=== PATIENT | male | born 1955 | race Caucasian/White ===

== ENCOUNTER → 2020-07-28 01:14 | Outpatient (CLI) | payer MEDICARE, SELFPAY ==
[2020-07-28 19:42] LABS: SARS-CoV-2 RNA PCR Negative
== END ==
PROVIDERS: PCP Nurse Practitioner; Visit Provider Internal Medicine Gastroenterology
DX: Z01.812 Encounter for preprocedural laboratory examination (principal); Z20.822 Contact with and (suspected) exposure to COVID-19
CPT/HCPCS: C9803; U0003; U0005

== ENCOUNTER 2020-08-01 00:40 | Day surgery (SDC) | payer MEDICARE, SELFPAY ==
[2020-07-17 15:01] VITALS: BMI 33.5
--- NOTE | 2020-07-31 15:19 | WPDANESEPPF ---
Anes - Initial Pre Proc Eval Procedure: Operation Date: 08/01/20 08:00 Proposed Procedures p Colonoscopy - Joce Soto MD Date/Time: 07/31/20 15:19 Surgeon: Joec Soto MD Pre Op Diagnosis: Positive Cologuard Patient Data Age: 65 Gender: M Height: 1.8 m Weight: 109 kg Allergies Allergy/AdvReac Type Severity Reaction Status Date / Time No Known Allergies Allergy Verified 07/17/20 15:02 Home Medications Medication Instructions Recorded Confirmed Type sodium,potassium,mag sulfates 17.5 See Rx Instructions PO .COMPLEX 07/09/20 Rx gram-3.13 gram-1.6 gram oral soln #354 ml cholecalciferol (vitamin D3) 25 mcg PO DAILY 07/17/20 07/17/20 History [Vitamin D3] diphenhydramine HCl [Benadryl 50 mg PO HS 07/17/20 07/17/20 History Allergy] lisinopril-hydrochlorothiazide 2 tablet PO HS 07/17/20 07/17/20 History metformin 1,000 mg PO BID 07/17/20 07/17/20 History multivit with min-folic acid 1 tablet PO DAILY 07/17/20 07/17/20 History [Adult One Daily Multivitamin] PMFSH Past Medical History Medical History (Updated 07/31/20 @ 15:20 by Oliver Wilson MD) Essential (primary) hypertension Fatty (change of) liver, not elsewhere classified Obesity Type 2 diabetes mellitus without complications Family History Family History (Updated 01/10/16 @ 10:18 by DOCTOR UNKNOWN) Father Hypertension Family history of cardiovascular disease Family history of dementia Mother Hypertension Other Family history of obesity Social History Social History Smoking status: Never smoker Alcohol intake: current Substance use: never Substance use type: does not use Spiritual care concerns: No Anes - Eval Final PreProcedure Day of Procedure 07/31/20 15:19 Patient weight: obese Heart: regular rate and rhythm Lungs: clear to auscultation and normal air movement Airway: Mallampati scale class II Neurological: alert and oriented Last oral intake: >/= 8 hours ASA classification: III Emergent: no Anesthetic plan: proceed Anesthesia type and monitoring: general GIVS Informed Consent: The patient's anesthetic plan and its attendant risks and benefits were discussed with the patient/family/POA. Questions were solicited and answers provided to the satisfaction of the patient/family/POA.
[2020-08-01 06:30] VITALS: BP 135/72; PULSE 60; RESP 18; O2SAT 97
[2020-08-01 06:42] VITALS: BMI 31.3
--- NOTE | 2020-08-01 06:46 | WPDANESEPPF ---
Anes - Initial Pre Proc Eval Procedure: Operation Date: 08/01/20 08:00 Proposed Procedures p Colonoscopy - Joce Soto MD Date/Time: 08/01/20 06:46 Surgeon: Joce Soto MD Pre Op Diagnosis: Positive Cologuard Patient Data Age: 65 Gender: M Height: 5 ft 11 in Weight: 101.8 kg Allergies Allergy/AdvReac Type Severity Reaction Status Date / Time No Known Allergies Allergy Verified 08/01/20 06:41 Home Medications Medication Instructions Recorded Confirmed Type sodium,potassium,mag sulfates 17.5 See Rx Instructions PO .COMPLEX 07/09/20 Rx gram-3.13 gram-1.6 gram oral soln #354 ml cholecalciferol (vitamin D3) 25 mcg PO DAILY 07/17/20 07/17/20 History [Vitamin D3] diphenhydramine HCl [Benadryl 50 mg PO HS 07/17/20 07/17/20 History Allergy] lisinopril-hydrochlorothiazide 2 tablet PO HS 07/17/20 07/17/20 History metformin 1,000 mg PO BID 07/17/20 07/17/20 History multivit with min-folic acid 1 tablet PO DAILY 07/17/20 07/17/20 History [Adult One Daily Multivitamin] Patient hx anesthesia problems: none Family hx anesthesia problems: none PMFSH Past Medical History Medical History Essential (primary) hypertension Fatty (change of) liver, not elsewhere classified Obesity Type 2 diabetes mellitus without complications Family History Family History Father Hypertension Family history of cardiovascular disease Family history of dementia Mother Hypertension Other Family history of obesity Social History Social History Smoking status: Never smoker Alcohol intake: current Substance use: never Substance use type: does not use Living arrangements: with family Spiritual care concerns: No Anes - Eval Final PreProcedure Day of Procedure 08/01/20 06:46 Patient weight: obese Heart: regular rate and rhythm Lungs: clear to auscultation Airway: Mallampati scale class II Neurological: alert and oriented Last oral intake: >/= 8 hours ASA classification: III Emergent: no Anesthetic plan: proceed Anesthesia type and monitoring: general Informed Consent: The patient's anesthetic plan and its attendant risks and benefits were discussed with the patient/family/POA. Questions were solicited and answers provided to the satisfaction of the patient/family/POA.
[2020-08-01 06:58] LABS: Glucose Point of Care 163 (65-105)
[2020-08-01] MEDS: LACTATED RINGERS 1,000 ML 150 ML IV CONT (06:59)
--- NOTE | 2020-08-01 07:57 | PM.HPGS ---
History of Present Illness History of Present Illness Consent: Risks, benefits, and alternatives have been discussed and questions answered. Patient agrees to proceed with procedure. Chief complaint: Positive Cologuard Narrative: Dusty Pittman is a 65 year old male with positive cologuard, never had colonoscopy Review of Systems Constitutional: Constitutional: Denies headache(s) and Denies weakness Eyes: Eyes: Denies blurry vision ENT: Reports Normal hearing present, Denies headache(s) and Denies neck pain Cardiovascular: Cardiovascular: Denies chest pain and Denies dyspnea Respiratory: Respiratory: Denies dyspnea Gastrointestinal: Gastrointestinal: Reports no additional gastrointestinal complaints Genitourinary: Genitourinary: Denies dysuria Musculoskeletal: Musculoskeletal: Denies neck pain Integumentary/Breasts: Skin/Breast: Denies dry skin Neurologic: Reports Normal hearing present, Denies headache(s) and Denies weakness Psychiatric: Psychiatric: Denies anxiety Endocrine: Endocrine: Denies change in body appearance Hematologic/Lymphatic: Hematologic/Lymphatic: Denies easy bleeding Allergic/Immunologic: Allergic/Immunologic: Denies urticaria PMFSH Past Medical History Medical History Essential (primary) hypertension Fatty (change of) liver, not elsewhere classified Obesity Type 2 diabetes mellitus without complications Family History Family History Father Hypertension Family history of cardiovascular disease Family history of dementia Mother Hypertension Other Family history of obesity Social History Social History Smoking status: Never smoker Alcohol intake: current Substance use: never Substance use type: does not use Living arrangements: with family Spiritual care concerns: No Meds Home Medications and Allergies Home Medications Medication Instructions Recorded Confirmed Type sodium,potassium,mag sulfates 17.5 See Rx Instructions PO .COMPLEX 07/09/20 Rx gram-3.13 gram-1.6 gram oral soln #354 ml cholecalciferol (vitamin D3) 25 mcg PO DAILY 07/17/20 07/17/20 History [Vitamin D3] diphenhydramine HCl [Benadryl 50 mg PO HS 07/17/20 07/17/20 History Allergy] lisinopril-hydrochlorothiazide 2 tablet PO HS 07/17/20 07/17/20 History metformin 1,000 mg PO BID 07/17/20 07/17/20 History multivit with min-folic acid 1 tablet PO DAILY 07/17/20 07/17/20 History [Adult One Daily Multivitamin] Allergies Allergy/AdvReac Type Severity Reaction Status Date / Time No Known Allergies Allergy Verified 08/01/20 06:41 Exam Const: General: comfortable and no acute distress HENMT: General nose exam: Normal nares present Eyes: General: appearance normal, both eyes and all related structures Neck: Neck: no JVD Resp: Auscultation: clear to auscultation bilaterally Cardio: Rate: regular rate Rhythm: regular rhythm GI: Inspection: non-distended GI Palp: Yes Soft to palpation Skin: General skin exam: normal color Neuro: General: gait normal Speech: normal speech Extrem: General: normal to inspection Psych: Mental Status: mental status grossly normal Assessment and Plan Assessment and plan (1) Positive colorectal cancer screening using Cologuard test: Code(s): R19.5 - Other fecal abnormalities Status: Acute Assessment and Plan: proceed with colonoscopy
[2020-08-01 08:33] VITALS: BP 102/66; PULSE 56; RESP 16
[2020-08-01 08:43] VITALS: BP 114/75; PULSE 55; RESP 26
[2020-08-01 08:53] VITALS: BP 115/73; PULSE 52; RESP 19
== END 2020-08-01 09:02 | disposition home or self-care (01) ==
PROVIDERS: PCP Nurse Practitioner; Visit Provider Internal Medicine Gastroenterology
PROC: 0DJD8ZZ Inspection of Lower Intestinal Tract, Via Natural or Artificial Opening Endoscopic (ICD-10-PCS; CPT 45378; principal; 2020-08-01 08:00)
DX: R19.5 Other fecal abnormalities (principal); D12.2 Benign neoplasm of ascending colon; K57.30 Diverticulosis of large intestine without perforation or abscess without bleeding; K64.8 Other hemorrhoids; I10 Essential (primary) hypertension; K76.0 Fatty (change of) liver, not elsewhere classified; E11.9 Type 2 diabetes mellitus without complications; E66.9 Obesity, unspecified; Z68.31 Body mass index [BMI] 31.0-31.9, adult; Z79.84 Long term (current) use of oral hypoglycemic drugs
CPT/HCPCS: 45380; 82948; 88305; J2001; J2704; J7120

== ENCOUNTER → 2021-06-26 15:16 | Outpatient (CLI) | payer MEDICARE, SELFPAY ==
--- NOTE | ~2021-06-26 | XR_ITS ---
XR chest 2V 06/26/2021 15:43 Indication: Cough Procedure: 2 view chest Comparison: 06/21/2007 Findings: Patchy bibasilar airspace disease, compatible with pneumonia. No pleural effusion. No pneum othorax. No acute osseous abnormality. Impression: 1: Patchy bibasilar airspace disease, compatible with pneumonia. Reviewed, dictated and finalized at location B. [facility] Impression: 1: Patchy bibasilar airspace disease, compatible with pneumonia.
== END ==
PROVIDERS: PCP Nurse Practitioner; Visit Provider Nurse Practitioner
DX: R05.9 Cough, unspecified (principal)
CPT/HCPCS: 71046

== ENCOUNTER 2022-07-02 09:48 | Outpatient (CLI) | payer MEDICARE, SELFPAY ==
[2022-07-02 16:54] LABS: Kit Draw Collected
== END 2022-07-02 09:49 | disposition home or self-care (01) ==
LOC: ANHGOSHLAB 09:53
PROVIDERS: PCP Family Medicine; Visit Provider Nurse Practitioner
DX: I10 Essential (primary) hypertension (principal); E78.5 Hyperlipidemia, unspecified; E11.9 Type 2 diabetes mellitus without complications
CPT/HCPCS: 36415

== ENCOUNTER 2022-11-24 09:52 | Outpatient (CLI) | payer MEDICARE, SELFPAY ==
[2022-11-24 16:51] LABS: Creatinine Urine 152.9 mg/dL
[2022-11-24 16:55] LABS: MALB Creatinine Ratio 19.2 mg/g (0-30); Microalbumin Urine Random 29.3 mg/L (0-16.7)
[2022-11-24 17:11] LABS: Vitamin D 25 Hydroxy 51.4 ng/mL
[2022-11-24 18:04] LABS: Hemoglobin A1C 6.5 % (<5.7)
[2022-11-24 18:23] LABS: Alanine Aminotransferase 59 U/L (6-50); Albumin Level 4.5 g/dL (3.5-5.1); Alkaline Phosphatase 72 U/L (38-126); Anion Gap 5 mmol/L (8-16); Aspartate Amino Transferase 79 U/L (17-59); Bilirubin,Total 0.8 mg/dL (0.2-1.3); Blood Urea Nitrogen 27 mg/dL (9-20); Carbon Dioxide 30 mmol/L (22-30); Chloride 104 mmol/L (98-107); Cholesterol 181 mg/dL (0-200); Estimated Glomerular Filt Rate > 60; Glucose 121 mg/dL (65-110); HDL Direct 35 mg/dL; Magnesium 2.2 mg/dL (1.6-2.3); Potassium 4.1 mmol/L (3.4-5.0); Sodium 139 mmol/L (137-145); Triglycerides 271 mg/dL (<150)
[2022-11-24 18:36] LABS: LDL Cholesterol Direct 98 mg/dL
[2022-11-24 18:52] LABS: Prostate Specific Antigen 0.8 ng/mL (< OR = 4.0); Thyroid Stimulating Hormone 0.306 uIU/mL (0.465-4.680)
== END 2022-11-24 09:53 | disposition home or self-care (01) ==
LOC: ANHGOSHLAB 09:54
PROVIDERS: PCP Family Medicine; Visit Provider Nurse Practitioner Family
DX: E11.9 Type 2 diabetes mellitus without complications (principal); Z13.1 Encounter for screening for diabetes mellitus; I10 Essential (primary) hypertension; Z13.220 Encounter for screening for lipoid disorders; Z13.29 Encounter for screening for other suspected endocrine disorder; R25.2 Cramp and spasm; N40.0 Benign prostatic hyperplasia without lower urinary tract symptoms; Z13.21 Encounter for screening for nutritional disorder; E53.8 Deficiency of other specified B group vitamins; Z12.5 Encounter for screening for malignant neoplasm of prostate
CPT/HCPCS: 36415; 80053; 80061; 82043; 82306; 82607; 83036; 83735; 84153; 84443; G0103

== ENCOUNTER → 2022-11-24 10:22 | Outpatient (CLI) | payer MEDICARE, SELFPAY ==
--- NOTE | ~2022-11-24 | XR_ITS ---
EXAMINATION: XR ribs LT 2V INDICATION: Left chest pain TECHNIQUE: 3 views of the left ribs were obtained. COMPARISON: 06/26/2021 FINDINGS: No displaced rib fracture is identified. The visualized portions of the lungs are clear. Th e heart size is normal. Calcified pulmonary nodules and calcified subcarinal lymph nodes are consiste nt with old granulomatous disease. IMPRESSION: 1. No displaced rib fracture identified. Reviewed, dictated and finalized at location []
== END ==
PROVIDERS: PCP Nurse Practitioner Family; Visit Provider Nurse Practitioner Family
DX: S29.9XXA Unspecified injury of thorax, initial encounter (principal); X58.XXXA Exposure to other specified factors, initial encounter
CPT/HCPCS: 71100

== ENCOUNTER 2023-05-11 09:17 | Outpatient (CLI) | payer MEDICARE, SELFPAY ==
[2023-05-11 18:44] LABS: Basophils Percent Auto 0.4 % (0.2-1.2); Eosinophils Absolute Auto 0.2 K/mm3 (0-0.3); Eosinophils Percent Auto 2.3 % (0-4.4); Hematocrit 49.8 % (42.0-52.0); Hemoglobin 16.4 g/dL (14.0-18.0); Immature Granulocyte Absolute 0.02 K/mm3 (0.00-0.031); Immature Granulocyte Percent A 0.3 % (0-0.5); Lymphocytes Absolute Auto 2.62 K/mm3 (0.9-3.2); Lymphocytes Percent Auto 33.2 % (18.3-44.2); Mean Corpuscular HGB Conc 32.9 g/dl (32-36); Mean Corpuscular Hemoglobin 31.1 pg (26-34); Mean Corpuscular Volume 94.3 fl (80-100); Mean Platelet Volume 10.4 fl (7.4-10.4); Monocytes Absolute Auto 0.5 K/mm3 (0.1-0.6); Monocytes Percent Auto 6.9 % (2.6-8.5); Neutrophils Absolute Auto 4.5 K/mm3 (1.3-6.7); Neutrophils Percent Auto 56.9 % (45.5-73.1); Platelet Count Result 209 k/mm3 (150-375); Red Blood Count 5.28 M/mm3 (4.6-6.20); White Blood Count 7.9 K/mm3 (4.5-10.0)
[2023-05-11 19:19] LABS: Alanine Aminotransferase 46 U/L (6-50); Albumin Level 4.2 g/dL (3.5-5.1); Alkaline Phosphatase 66 U/L (38-126); Anion Gap 8 mmol/L (8-16); Aspartate Amino Transferase 45 U/L (17-59); Bilirubin,Total 0.7 mg/dL (0.2-1.3); Blood Urea Nitrogen 29 mg/dL (9-20); Calcium 9.8 mg/dL (8.4-10.2); Carbon Dioxide 27 mmol/L (22-30); Chloride 106 mmol/L (98-107); Cholesterol 177 mg/dL (0-200); Estimated Glomerular Filt Rate > 60; Glucose 132 mg/dL (65-110); HDL Direct 33 mg/dL; Sodium 141 mmol/L (137-145); Triglycerides 219 mg/dL (<150)
[2023-05-11 19:30] LABS: LDL Cholesterol Direct 96 mg/dL
[2023-05-11 19:50] LABS: Thyroid Stimulating Hormone 0.419 uIU/mL (0.465-4.680)
[2023-05-11 20:07] LABS: Free T4 Free Thyroxine 1.26 ng/mL (0.78-2.19)
== END 2023-05-11 09:18 | disposition home or self-care (01) ==
LOC: ANHGOSHLAB 09:19
PROVIDERS: PCP Nurse Practitioner Family; Visit Provider Nurse Practitioner Family
DX: E11.9 Type 2 diabetes mellitus without complications (principal); Z00.00 Encounter for general adult medical examination without abnormal findings; I10 Essential (primary) hypertension; E53.8 Deficiency of other specified B group vitamins; Z13.220 Encounter for screening for lipoid disorders; Z13.29 Encounter for screening for other suspected endocrine disorder; R79.89 Other specified abnormal findings of blood chemistry
CPT/HCPCS: 36415; 80053; 80061; 82607; 84439; 84443; 85025

== ENCOUNTER 2023-05-18 09:21 | Outpatient (CLI) | payer MEDICARE, SELFPAY | END 2023-05-18 09:22 | disposition home or self-care (01) | LOC: ANHGOSHLAB 09:22 | PROVIDERS: PCP Nurse Practitioner Family; Visit Provider Nurse Practitioner Family | DX: E11.9 Type 2 diabetes mellitus without complications (principal) | CPT/HCPCS: 36415; 83036 ==

== ENCOUNTER 2023-11-23 08:45 | Outpatient (CLI) | payer MEDICARE, SELFPAY ==
[2023-11-23 12:27] LABS: Basophils Percent Auto 0.3 % (0.2-1.2); Eosinophils Absolute Auto 0.2 K/mm3 (0-0.3); Eosinophils Percent Auto 2.6 % (0-4.4); Hematocrit 48.7 % (42.0-52.0); Hemoglobin 16.8 g/dL (14.0-18.0); Immature Granulocyte Absolute 0.02 K/mm3 (0.00-0.031); Immature Granulocyte Percent A 0.2 % (0-0.5); Lymphocytes Absolute Auto 3.11 K/mm3 (0.9-3.2); Lymphocytes Percent Auto 35.6 % (18.3-44.2); Mean Corpuscular HGB Conc 34.5 g/dl (32-36); Mean Corpuscular Hemoglobin 32.4 pg (26-34); Mean Corpuscular Volume 93.8 fl (80-100); Mean Platelet Volume 10.5 fl (7.4-10.4); Monocytes Absolute Auto 0.6 K/mm3 (0.1-0.6); Monocytes Percent Auto 6.8 % (2.6-8.5); Neutrophils Absolute Auto 4.8 K/mm3 (1.3-6.7); Neutrophils Percent Auto 54.5 % (45.5-73.1); Platelet Count Result 212 k/mm3 (150-375); Red Blood Count 5.19 M/mm3 (4.6-6.20); Red Cell Distribution Width 13.2 % (11.5-14.5); White Blood Count 8.7 K/mm3 (4.5-10.0)
[2023-11-23 13:25] LABS: Alanine Aminotransferase 36 U/L (6-50); Albumin Level 4.4 g/dL (3.5-5.1); Alkaline Phosphatase 59 U/L (38-126); Anion Gap 10 mmol/L (4-12); Aspartate Amino Transferase 43 U/L (17-59); Bilirubin,Total 0.9 mg/dL (0.2-1.3); Blood Urea Nitrogen 23 mg/dL (9-20); Carbon Dioxide 28 mmol/L (22-30); Chloride 104 mmol/L (98-107); Cholesterol 177 mg/dL (0-200); Estimated Glomerular Filt Rate > 60; Glucose 130 mg/dL (65-110); HDL Direct 37 mg/dL; Potassium 3.7 mmol/L (3.4-5.0); Sodium 142 mmol/L (137-145); Triglycerides 337 mg/dL (<150)
[2023-11-23 13:36] LABS: LDL Cholesterol Direct 93 mg/dL
[2023-11-23 13:52] LABS: Prostate Specific Antigen 0.8 ng/mL (< OR = 4.0); Thyroid Stimulating Hormone 0.571 uIU/mL (0.465-4.680)
[2023-11-23 19:02] LABS: Hemoglobin A1C 6.2 % (<5.7)
== END 2023-11-23 08:46 | disposition home or self-care (01) ==
LOC: ANHGOSHLAB 08:47
PROVIDERS: PCP Nurse Practitioner Family; Visit Provider Nurse Practitioner Family
DX: E78.5 Hyperlipidemia, unspecified (principal); E11.9 Type 2 diabetes mellitus without complications; I10 Essential (primary) hypertension; N40.0 Benign prostatic hyperplasia without lower urinary tract symptoms; Z12.5 Encounter for screening for malignant neoplasm of prostate; K76.0 Fatty (change of) liver, not elsewhere classified
CPT/HCPCS: 36415; 80053; 80061; 83036; 84153; 84443; 85025; G0103

== ENCOUNTER 2023-12-01 14:40 | Emergency (ER) | payer MEDICARE, SELFPAY ==
[2023-12-01 14:56] VITALS: BP 107/64; PULSE 57; RESP 16; TEMP 36; O2SAT 97
--- NOTE | 2023-12-01 15:03 | ED.URI ---
HPI - URI/Sore Throat General Chief Complaint: Upper Respiratory Infection Stated Complaint: Congestion/Exhaustion Time Seen by Provider: 12/01/23 15:03 Source: patient, RN notes reviewed and old records reviewed Mode of arrival: ambulatory Limitations: no limitations History of Present Illness HPI Narrative: 68-year-old male to [facility] with complaint of fatigue, sinus pressure, increased sweating, congestion for 3 days. patient denies allergies, shortness of breath, chest pain, ear pain, sore throat, cough. Patient able to tolerate fluids by mouth. Respirations even and nonlabored. Patient able to speak in full sentences without difficulty. Patient in no acute distress. Related Data Home Medications Medication Instructions Recorded Confirmed cholecalciferol (vitamin D3) 25 25 mcg PO DAILY 07/17/20 11/26/23 mcg (1,000 unit) capsule (Vitamin D3) multivitamin with minerals-folic 1 tablet PO DAILY 07/17/20 11/26/23 acid 0.4 mg tablet (Adult One Daily Multivitamin) krill oil 500 mg capsule 500 mg PO DAILY 10/24/20 11/26/23 diphenhydramine HCl 25 mg tablet 50 mg PO HS PRN sleep 05/01/21 11/26/23 (Benadryl Allergy) Allergies Allergy/AdvReac Type Severity Reaction Status Date / Time No Known Allergies Allergy Verified 11/26/23 08:55 Review of Systems Review of Systems: All systems reviewed & are unremarkable except as noted in HPI and below Constitutional: Constitutional: Reports as per HPI, Reports excessive sweating, Reports fatigue, Denies fever(s) and Reports lethargy Eyes: Eyes: Reports no additional eye complaints ENT: Reports as per HPI, Reports nasal congestion and Reports sinus pressure Cardiovascular: Cardiovascular: Reports no additional cardiovascular complaints, Denies chest pain and Denies dyspnea Respiratory: Respiratory: Reports no additional respiratory complaints, Denies cough and Denies dyspnea Musculoskeletal: Musculoskeletal: Reports no additional musculoskeletal complaints Neurologic: Reports system reviewed and no additional complaints, except as documented Psychiatric: Psychiatric: Reports no additional psychiatric complaints PMFSH Past Medical History Medical History Essential (primary) hypertension Fatty (change of) liver, not elsewhere classified Muscle cramping Obesity Positive colorectal cancer screening using Cologuard test Rib injury Type 2 diabetes mellitus without complications Family History Family History Father Hypertension Family history of cardiovascular disease Family history of dementia Mother Hypertension Other Family history of obesity Social History Social History Social History: Caffeine- tea Smoking status: Never smoker Alcohol intake: never Substance use: never Substance use type: does not use Lack of Transportation: No Lack of Food: Never True Current Housing: I Have Housing Concerned About Future Housing: No Difficulty Paying Gas/Electric Bills: No Difficulty Paying for Meds: No Currently Unemployed: No Education: Trade/Vocational Certificate Difficulty w/ Childcare or Family Care: No Living arrangements: with family Spiritual care concerns: No Comments At the time of my signature, I reviewed and agree with the nursing past medical, surgical, social, and family history. There is no relevant family history pertinent to the patient complaint. Exam Const: General: cooperative, no acute distress, alert, ill appearing acutely, tired appearing, uncomfortable and well nourished Nutritional Appearance: well nourished Orientation/consciousness: patient oriented x3 Limitations: no limitations HENMT: Head: normal to inspection Ears: external ears normal Face/Nose/Sinus: Normal external nose present, Normal nares pres
[2023-12-01 15:09] LABS: EDINFLUASCREEN Negative; EDINFLUBSCREEN Negative
== END 2023-12-01 15:35 | disposition home or self-care (01) ==
PROVIDERS: Emergency Provider Nurse Practitioner Family; PCP Nurse Practitioner Family
DX: U07.1 COVID-19 (principal); I10 Essential (primary) hypertension; E11.9 Type 2 diabetes mellitus without complications; K76.0 Fatty (change of) liver, not elsewhere classified; E66.9 Obesity, unspecified; Z68.31 Body mass index [BMI] 31.0-31.9, adult
CPT/HCPCS: 87426; 87804; 99213; G0463

== ENCOUNTER 2024-02-21 10:14 | Emergency (ER) | payer MEDICARE, SELFPAY ==
[2024-02-21 10:25] VITALS: BP 133/76; PULSE 55; RESP 16; TEMP 36.9; O2SAT 99
--- NOTE | 2024-02-21 10:31 | ED.EAR ---
HPI - Ear Problem General Chief complaint: Ear Stated complaint: R EAR CLOGGED Time Seen by Provider: 02/21/24 10:30 Source: patient and RN notes reviewed Mode of arrival: ambulatory Limitations: no limitations History of Present Illness HPI Narrative: 69-year-old male presents concern for right hearing decrease, feeling of ear being clogged. Reports he used [id number] drops without relief for a couple days. MD Complaint: decreased hearing Related Data Home Medications Medication Instructions Recorded Confirmed cholecalciferol (vitamin D3) 25 25 mcg PO DAILY 07/17/20 02/21/24 mcg (1,000 unit) capsule (Vitamin D3) multivitamin with minerals-folic 1 tablet PO DAILY 07/17/20 02/21/24 acid 0.4 mg tablet (Adult One Daily Multivitamin) krill oil 500 mg capsule 500 mg PO DAILY 10/24/20 02/21/24 diphenhydramine HCl 25 mg tablet 50 mg PO HS PRN sleep 05/01/21 02/21/24 (Benadryl Allergy) Allergies Allergy/AdvReac Type Severity Reaction Status Date / Time No Known Allergies Allergy Verified 02/21/24 10:23 Review of Systems Review of Systems: CONSTITUTIONAL: Denies malaise, chills, sweats, or fever. EYES: Denies visual changes, redness, or discharge. ENT: Denies rhinorrhea, congestion, sinus pain, and sore throat. Reports right ear clogged, decreased hearing CARDIOVASCULAR: Denies chest pain, palpitations, or edema. RESPIRATORY: Denies cough. Denies dyspnea. GASTROINTESTINAL: Denies abdominal pain, nausea, vomiting, diarrhea SKIN: Denies rash or itching. MUSCULOSKELETAL: Denies myalgia. NEUROLOGIC: Denies headache. All systems reviewed & are unremarkable except as noted in HPI and below PMFSH Past Medical History Medical History Essential (primary) hypertension Fatty (change of) liver, not elsewhere classified Muscle cramping Obesity Positive colorectal cancer screening using Cologuard test Rib injury Type 2 diabetes mellitus without complications Family History Family History Father Hypertension Family history of cardiovascular disease Family history of dementia Mother Hypertension Other Family history of obesity Social History Social History Social History: Caffeine- tea Smoking status: Never smoker Alcohol intake: never Substance use: never Substance use type: does not use Lack of Transportation: No Lack of Food: Never True Current Housing: I Have Housing Concerned About Future Housing: No Difficulty Paying Gas/Electric Bills: No Difficulty Paying for Meds: No Currently Unemployed: No Education: Trade/Vocational Certificate Difficulty w/ Childcare or Family Care: No Living arrangements: with family Spiritual care concerns: No Comments At time of signature, agree with nursing past medical, surgical, social and family history. There is no relevant family history pertinent to the presenting complaint Exam Narrative: GENERAL: Well-appearing, well-nourished, and in no acute distress. HEAD: Normocephalic EYES: PERRLA, conjunctivae clear ENT: Nares clear, turbinates edematous, clear discharge. Mucous membranes moist. Left TM pearly villalta with dull light reflex, right TM not visible due to cerumen impaction; no tragal tenderness. Oropharynx not erythematous without lesions. Tonsils not enlarged and without exudate, no drooling, no hoarseness, no trismus, uvula midline. NECK: Supple. No lymphadenopathy CHEST: Clear to auscultation, breath sounds equal. No wheezing, rhonchi, rales, or stridor. No respiratory distress, speaks in full sentences. HEART: Regular rate and rhythm. No murmur heard. SKIN: Warm, dry, no rash. NEURO: Alert and oriented x3. PSYCH: Normal mood and affect Course Course Emergency Course: Patient is aware of diagnosis, understands and agrees
== END 2024-02-21 10:58 | disposition home or self-care (01) ==
PROVIDERS: Emergency Provider Nurse Practitioner; PCP Nurse Practitioner Family
DX: H61.21 Impacted cerumen, right ear (principal); I10 Essential (primary) hypertension; K76.0 Fatty (change of) liver, not elsewhere classified; E66.9 Obesity, unspecified; Z68.1 Body mass index [BMI] 19.9 or less, adult; E11.9 Type 2 diabetes mellitus without complications
CPT/HCPCS: 69210; 99212; G0463

== ENCOUNTER 2024-06-14 09:09 | Outpatient (CLI) | payer MEDICARE, SELFPAY ==
[2024-06-14 13:30] LABS: Basophils Percent Auto 0.5 % (0.2-1.2); Eosinophils Absolute Auto 0.1 K/mm3 (0-0.3); Eosinophils Percent Auto 1.5 % (0-4.4); Hematocrit 50.5 % (42.0-52.0); Hemoglobin 16.6 g/dL (14.0-18.0); Immature Granulocyte Absolute 0.02 K/mm3 (0.00-0.031); Immature Granulocyte Percent A 0.3 % (0-0.5); Lymphocytes Absolute Auto 2.38 K/mm3 (0.9-3.2); Lymphocytes Percent Auto 30.2 % (18.3-44.2); Mean Corpuscular HGB Conc 32.9 g/dl (32-36); Mean Corpuscular Hemoglobin 31.5 pg (26-34); Mean Corpuscular Volume 95.8 fl (80-100); Monocytes Absolute Auto 0.5 K/mm3 (0.1-0.6); Monocytes Percent Auto 6.1 % (2.6-8.5); Neutrophils Absolute Auto 4.8 K/mm3 (1.3-6.7); Neutrophils Percent Auto 61.4 % (45.5-73.1); Platelet Count Result 198 k/mm3 (150-375); Red Blood Count 5.27 M/mm3 (4.6-6.20); White Blood Count 7.9 K/mm3 (4.5-10.0)
[2024-06-14 13:56] LABS: Alanine Aminotransferase 70 U/L (6-50); Albumin Level 4.4 g/dL (3.5-5.1); Alkaline Phosphatase 60 U/L (38-126); Anion Gap 9 mmol/L (4-12); Aspartate Amino Transferase 80 U/L (17-59); Bilirubin,Total 0.9 mg/dL (0.2-1.3); Blood Urea Nitrogen 26 mg/dL (9-20); Calcium 9.4 mg/dL (8.4-10.2); Carbon Dioxide 28 mmol/L (22-30); Chloride 105 mmol/L (98-107); Cholesterol 189 mg/dL (0-200); Estimated Glomerular Filt Rate > 60; Glucose 130 mg/dL (65-110); HDL Direct 34 mg/dL; Potassium 3.6 mmol/L (3.4-5.0); Sodium 142 mmol/L (137-145); Triglycerides 318 mg/dL (<150)
[2024-06-14 14:02] LABS: Vitamin D 25 Hydroxy 47.1 ng/mL
[2024-06-14 14:07] LABS: LDL Cholesterol Direct 96 mg/dL
[2024-06-14 14:30] LABS: Creatinine Urine 107.9 mg/dL
[2024-06-14 14:37] LABS: MALB Creatinine Ratio 151.9 mg/g (0-30); Microalbumin Urine Random 163.9 mg/L (0-16.7)
[2024-06-14 19:32] LABS: Hemoglobin A1C 6.9 % (<5.7)
== END 2024-06-14 09:10 | disposition home or self-care (01) ==
LOC: ANHGOSHLAB 09:10
PROVIDERS: PCP Nurse Practitioner Family; Visit Provider Nurse Practitioner Family
DX: E55.9 Vitamin D deficiency, unspecified (principal); I10 Essential (primary) hypertension; E78.2 Mixed hyperlipidemia; E11.9 Type 2 diabetes mellitus without complications
CPT/HCPCS: 36415; 80053; 80061; 82043; 82306; 83036; 85025

== ENCOUNTER 2024-12-19 09:21 | Outpatient (CLI) | payer MEDICARE, SELFPAY ==
[2024-12-19 13:40] LABS: Hematocrit 48.1 % (42.0-52.0); Hemoglobin 16.1 g/dL (14.0-18.0); Immature Granulocyte Percent A 0.3 % (0-0.5); Lymphocytes Absolute Auto 2.07 K/mm3 (0.9-3.2); Mean Corpuscular HGB Conc 33.5 g/dl (32-36); Mean Corpuscular Hemoglobin 31.5 pg (26-34); Mean Corpuscular Volume 94.1 fl (80-100); Nucleated Red Blood Cells Absolute Auto 0.000 K/mm3 (0.0-0.012); Nucleated Red Blood Cells Perc 0.0 % (0.0-0.2); Platelet Count Result 193 k/mm3 (150-375); Red Blood Count 5.11 M/mm3 (4.6-6.20); White Blood Count 7.2 K/mm3 (4.5-10.0)
[2024-12-19 13:51] LABS: Alanine Aminotransferase 52 U/L (6-50); Albumin Level 4.3 g/dL (3.5-5.1); Alkaline Phosphatase 73 U/L (38-126); Anion Gap 10 mmol/L (4-12); Aspartate Amino Transferase 71 U/L (17-59); Bilirubin,Total 0.5 mg/dL (0.2-1.3); Blood Urea Nitrogen 25 mg/dL (9-20); Calcium 10.0 mg/dL (8.4-10.2); Carbon Dioxide 26 mmol/L (22-30); Chloride 106 mmol/L (98-107); Cholesterol 192 mg/dL (0-200); Estimated Glomerular Filt Rate > 60; Glucose 165 mg/dL (65-110); HDL Direct 33 mg/dL; Potassium 3.8 mmol/L (3.4-5.0); Sodium 142 mmol/L (137-145); Total Protein 7.5 g/dL (6.3-8.2); Triglycerides 364 mg/dL (<150)
[2024-12-19 14:13] LABS: Prostate Specific Antigen 1.1 ng/mL (< OR = 4.0)
[2024-12-19 15:52] LABS: Hemoglobin A1C 7.3 % (<5.7)
== END 2024-12-19 09:22 | disposition home or self-care (01) ==
LOC: ANHGOSHLAB 09:22
PROVIDERS: PCP Nurse Practitioner Family; Visit Provider Nurse Practitioner Family
DX: E11.9 Type 2 diabetes mellitus without complications (principal); I10 Essential (primary) hypertension; E78.5 Hyperlipidemia, unspecified; Z12.5 Encounter for screening for malignant neoplasm of prostate
CPT/HCPCS: 36415; 80053; 80061; 83036; 84153; 85025; G0103